=== PATIENT | female | born 1975 | race Caucasian/White ===

== ENCOUNTER → 2022-01-03 10:44 | Outpatient (BNVA) | payer OTHER, MEDICAID, SELFPAY | PROVIDERS: Family Provider General Practice; Visit Provider Nurse Practitioner | DX: J02.9 Acute pharyngitis, unspecified (principal); B96.89 Other specified bacterial agents as the cause of diseases classified elsewhere; J03.80 Acute tonsillitis due to other specified organisms | CPT/HCPCS: 87880 ==

== ENCOUNTER 2023-05-27 09:48 | Outpatient (CLI) | payer OTHER, MEDICAID, SELFPAY ==
--- NOTE | 2023-05-27 09:56 | NM_ITS ---
WS: [id number] NUCLEAR MEDICINE HIDA SCAN CLINICAL INFORMATION: RIGHT UPPER QUADRANT ABDOMINAL PAIN TECHNIQUE: Following intravenous administration of 7.6 mCi of technetium 99m mebrofenin, images of th e abdomen were obtained over the course of 60 minutes. Next, gallbladder ejection fraction was determ ined by obtaining preprandial and one-hour postprandial images of the gallbladder following oral fernando stion of Ensure. COMPARISON: None. FINDINGS: Normal hepatic uptake at 5 minutes. Normal hepatic excretion. Gallbladder is visualized by 15 minutes . No evidence of acute cholecystitis. Normal small bowel and common bile duct activity. Gallbladder ejection fraction 78% within normal limits. No evidence of chronic cholecystitis. IMPRESSION: 1. No evidence of acute or chronic cholecystitis. 2. Gallbladder ejection fraction 78% within normal limits.
== END 2023-05-27 09:49 | disposition home or self-care (01) ==
PROVIDERS: PCP Registered Nurse; Visit Provider Registered Nurse
DX: R10.11 Right upper quadrant pain (principal)
CPT/HCPCS: 78227; A9537

== ENCOUNTER → 2024-12-07 14:47 | Outpatient (BNVA) | payer OTHER, MEDICAID, SELFPAY | PROVIDERS: PCP Registered Nurse; Visit Provider Emergency Medicine | DX: M23.91 Unspecified internal derangement of right knee (principal); W10.9XXA Fall (on) (from) unspecified stairs and steps, initial encounter; Y92.89 Other specified places as the place of occurrence of the external cause | CPT/HCPCS: 73562 ==

== ENCOUNTER 2024-12-24 16:17 | Outpatient (CLI) | payer OTHER, SELFPAY ==
--- NOTE | 2024-12-24 16:25 | XRR_ITS ---
PROCEDURE INFORMATION: Exam: XR Cervical Spine Exam date and time: 12/24/2024 4:31 PM Age: 49 years old Clinical indication: Injury or trauma; Blunt trauma; Injury details: Fall down steps x 3 months, aching pain in lower back since. ; Additional info: Continued neck and shoulder pain3 mos S/P injury TECHNIQUE: Imaging protocol: Radiologic exam of the cervical spine. Views: 2 or 3 views. COMPARISON: No relevant prior studies available. FINDINGS: Bones/joints: No displaced fractures with preserved vertebral body heights. No subluxation. Straightening of the normal cervical lordosis, which could be positional or related to muscle spasm. No significant radiographic degenerative change. Soft tissues: Unremarkable. Lungs: Visualized lung apices are clear. XR/XR cervical spine 3V* [id number] IMPRESSION: 1. No displaced fracture or subluxation in the cervical spine. 2. Straightening of the normal cervical lordosis, which could be positional or related to muscle spasm. 3. No significant radiographic degenerative change. 4. If the patient experiences persistent or worsening symptoms, cross-sectional imaging could be considered for further evaluation.
--- NOTE | 2024-12-24 16:25 | XRR_ITS ---
PROCEDURE INFORMATION: Exam: XR Lumbosacral Spine Exam date and time: 12/24/2024 4:31 PM Age: 49 years old Clinical indication: Injury or trauma; Blunt trauma (contusions or hematomas); Injury details: Fall down steps x 3 months, aching pain in lower back since. ; Additional info: Continued low back pain 3 mos p injury/ assoc knee injury TECHNIQUE: Imaging protocol: Radiologic exam of the lumbosacral spine. Views: 2 or 3 views. COMPARISON: NM hepatobiliary w phar* [id number] 05/27/2023 9:56 AM FINDINGS: Bones/joints: Five [id number]-[id number] lumbar vertebral bodies are present. No displaced fractures with preserved vertebral body heights. No subluxation. Mild multilevel disc space narrowing with mild facet joint osteoarthritis in the lower lumbar spine. Soft tissues: Unremarkable. XR/XR lumbar spine 2-3V* [id number] IMPRESSION: 1. No displaced fracture or subluxation in the lumbar spine. 2. Mild degenerative changes.
== END 2024-12-24 16:18 | disposition home or self-care (01) ==
LOC: RAD 16:18
PROVIDERS: PCP Registered Nurse; Visit Provider Family Medicine
DX: S16.1XXA Strain of muscle, fascia and tendon at neck level, initial encounter (principal); S39.012A Strain of muscle, fascia and tendon of lower back, initial encounter; W10.9XXA Fall (on) (from) unspecified stairs and steps, initial encounter; M47.816 Spondylosis without myelopathy or radiculopathy, lumbar region
CPT/HCPCS: 72040; 72100

== ENCOUNTER 2024-12-26 05:00 | Outpatient (RCR) | payer OTHER, SELFPAY | END 2025-01-25 23:59 | disposition home or self-care (01) | LOC: SPT 05:00 | PROVIDERS: Visit Provider Family Medicine | DX: S16.1XXD Strain of muscle, fascia and tendon at neck level, subsequent encounter (principal); S39.012D Strain of muscle, fascia and tendon of lower back, subsequent encounter; X58.XXXD Exposure to other specified factors, subsequent encounter | CPT/HCPCS: 97110; 97161; G0283 ==

== ENCOUNTER 2025-01-23 08:42 | Outpatient (CLI) | payer OTHER, SELFPAY ==
--- NOTE | 2025-01-23 08:45 | MR_ITS ---
WS: [id number] MRI RIGHT KNEE NONCONTRAST TECHNIQUE: Axial PD, coronal PD fat sat, coronal PD, sagittal PD, and sagittal PD fat-sat images obtained. CLINICAL INFORMATION: Right knee pain COMPARISON: None. FINDINGS: Distal quadriceps and patella tendons are intact. Normal ACL and PCL. Normal lateral meniscus. Tear of the anterior horn medial meniscus at the meniscal root. Associated fluid and edema. Blunting of the anterior horn. Posterior horn appears intact. 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 No subchondral edema. 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 No subchondral edema. Small amount of prepatellar soft tissue edema. Medial and lateral collateral ligaments are intact. Small amount of increased signal involving the popliteus at the origin. Small lobulated popliteal cyst measuring 2.1 x 0.4 cm MR/MR knee RT wo con* [id number] IMPRESSION: 1. ACL and PCL are appear intact. 2. Blunting with tear involving the anterior horn medial meniscus at the menis darian root with associated edema. 3. 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 4. Grade II-III chondromalacia patella worse involving the lateral patellar fa cet. 5. Medial and lateral collateral ligaments appear intact. 6. Small lobulated popliteal cyst measuring 2.1 x 0.4 cm craniocaudal by AP 7. Increased signal involving the popliteus at the origin suspicious for tiny intrasubstance tear Outbridge grading: grade III: partial-thickness cartilage loss with focal ulcer ation
== END 2025-01-23 08:43 | disposition home or self-care (01) ==
LOC: RAD 08:43
PROVIDERS: PCP Registered Nurse; Visit Provider Orthopaedic Surgery
DX: M23.311 Other meniscus derangements, anterior horn of medial meniscus, right knee (principal)
CPT/HCPCS: 73721

== ENCOUNTER 2025-01-26 06:30 | Outpatient (RCR) | payer OTHER, SELFPAY | END 2025-02-07 15:19 | disposition home or self-care (01) | LOC: SPT 06:30 | PROVIDERS: PCP Registered Nurse; Visit Provider Family Medicine | DX: S16.1XXD Strain of muscle, fascia and tendon at neck level, subsequent encounter (principal); S39.012D Strain of muscle, fascia and tendon of lower back, subsequent encounter; X58.XXXD Exposure to other specified factors, subsequent encounter | CPT/HCPCS: 97110; G0283 ==